=== PATIENT | female | born 1995 | race Caucasian/White ===

== ENCOUNTER 2023-06-16 07:16 | Inpatient (IN) | payer OTHER ==
[2023-06-16] MEDS ORDERED: Lidocaine 1% 50 ML MDV INJECT ONE (12:27)
[2023-06-16] MEDS ORDERED: Acetaminophen 325 MG Tab PO PRN (12:27)
[2023-06-16] MEDS ORDERED: Nalbuphine 10 MG/0.5 ML Syringe IVPUSH PRN (12:27)
[2023-06-16] MEDS ORDERED: Sodium Chloride 0.9% 10 ML Syringe FLUSH PRN (12:27)
[2023-06-16] MEDS ORDERED: Ondansetron 4 MG/2 ML SDV IVPUSH PRN (12:27)
[2023-06-16] MEDS ORDERED: Oxytocin/Lactated Ringers 10 UNIT/1,000 ML BAG IV SCH ×2 (12:30)
[2023-06-16 13:00] LABS: HEMOGLOBIN 10.1 gm/dl (12.0-16.0); MEAN CORPUSCULAR HEMOGLOBIN 21.1 pg (28.0-32.0); MEAN CORPUSCULAR HGB CONC 29.7 g/dl (32.0-36.0); MEAN CORPUSCULAR VOLUME 71.1 fl (83.0-99.0); MEAN PLATELET VOLUME 10.9 fl (9.4-12.3); PLATELET COUNT,PLT 148 K/mm3 (150-400); RED BLOOD CELL COUNT 4.78 M/mm3 (4.10-5.30); WHITE BLOOD CELL COUNT,WBC 7.18 K/mm3 (3.9-11.3)
[2023-06-16] MEDS ORDERED: Ampicillin 2 GM in Sodium Chloride 0.9% 100 ML IV ONE (13:00)
[2023-06-16] MEDS: Lactated Ringers 1,000 ML IV SCH ×3 (13:16→22:38)
[2023-06-16 13:19] LABS: A/G RATIO 0.5 (1-2); ALBUMIN 2.3 g/dl (3.4-5.0); ANION GAP 18.8 (5-15); CALCIUM 9.5 mg/dL (8.5-10.1); CREATININE 0.5 mg/dL (0.55-1.02); EST CRCL DRUG DOSING (CG) 141.04 mL/min; POTASSIUM,K 3.8 mEq/L (3.5-5.1); PROTEIN TOTAL,TP 6.6 g/dl (6.4-8.2)
[2023-06-16] MEDS: Ampicillin 1 GM in Sodium Chloride 0.9% 100 ML IV SCH ×2 (16:53→21:34)
[2023-06-16] MEDS ORDERED: Sodium Chloride 0.9% 10 ML Syringe FLUSH SCH (21:00)
[2023-06-16] MEDS ORDERED: fentaNYL 100 MCG/2 ML SDV EPIDUR PRN (21:04)
[2023-06-16] MEDS ORDERED: diphenhydrAMINE 50 MG/ML SDV IVPUSH PRN (21:04)
[2023-06-16] MEDS ORDERED: ePHEDrine 50 MG/ML SDV IVPUSH PRN (21:04)
[2023-06-16] MEDS: Bupivacaine/fentaNYL/NS 100 ML Bag EPIDUR PRN (21:17)
[2023-06-16 23:58] LABS: ALANINE AMINOTRANSFERASE,ALT 123 U/L (14-59); ASPARTATE AMNIOTRANSFERASE,AST 61 U/L (15-37)
[2023-06-17] MEDS: Ampicillin 1 GM in Sodium Chloride 0.9% 100 ML IV SCH ×2 (00:55→05:00)
[2023-06-17] MEDS: Bupivacaine/fentaNYL/NS 100 ML Bag EPIDUR PRN (01:58)
[2023-06-17] MEDS: Lactated Ringers 1,000 ML IV SCH (07:36)
[2023-06-17] MEDS ORDERED: Benzocaine/Menthol 20%-0.5% Spray 78 GM Cannister TOP PRN (08:35)
[2023-06-17] MEDS ORDERED: Acetaminophen 325 MG Tab PO PRN (08:35)
[2023-06-17] MEDS ORDERED: Witch Hazel Medicated Pads 40/Jar TOP PRN (08:35)
[2023-06-18] MEDS: Ibuprofen 600 MG Tab PO PRN ×3 (01:55→21:45)
[2023-06-18] MEDS: Docusate Sodium 100 MG Cap PO PRN (09:00)
[2023-06-18 10:46] LABS: HBSAG SCREEN Negative (Negative); HCV AB Non Reactive (Non Reactive); HEP A AB, IGM Negative (Negative); HEP B CORE AB, IGM Negative (Negative)
[2023-06-19] MEDS: Docusate Sodium 100 MG Cap PO PRN (08:01)
[2023-06-19] MEDS: Ibuprofen 600 MG Tab PO PRN ×2 (08:02→16:50)
[2023-06-19] MEDS ORDERED: Measles, Mumps & Rubella Vaccine 0.5 ML SDV SUBCUT ONE (09:00)
== END 2023-06-19 17:00 | disposition home or self-care (01) | DRG 805 ==
LOC: JD.OB 07:16 → OBSVTOIN 06-17 07:16 → JD.OB 06-17 07:17
PROVIDERS: ADMIT Obstetrics & Gynecology; ATTEND Obstetrics & Gynecology
PROC: 10D07Z6 Extraction of Products of Conception, Vacuum, Via Natural or Artificial Opening (ICD-10-PCS; principal; 2023-06-17)
PROC: 0KQM0ZZ Repair Perineum Muscle, Open Approach (ICD-10-PCS; 2023-06-17)
PROC: 10907ZC Drainage of Amniotic Fluid, Therapeutic from Products of Conception, Via Natural or Artificial Opening (ICD-10-PCS; 2023-06-17)
PROC: 3E033VJ Introduction of Other Hormone into Peripheral Vein, Percutaneous Approach (ICD-10-PCS; 2023-06-17)
PROC: 3E0R3BZ Introduction of Anesthetic Agent into Spinal Canal, Percutaneous Approach (ICD-10-PCS; 2023-06-17)
PROC: 00HU33Z Insertion of Infusion Device into Spinal Canal, Percutaneous Approach (ICD-10-PCS; 2023-06-17)
PROC: 3E0234Z Introduction of Serum, Toxoid and Vaccine into Muscle, Percutaneous Approach (ICD-10-PCS; 2023-06-17)
DX: O26.62 Liver and biliary tract disorders in childbirth (principal); K83.1 Obstruction of bile duct; Z37.0 Single live birth; R74.8 Abnormal levels of other serum enzymes; O24.420 Gestational diabetes mellitus in childbirth, diet controlled; O99.824 Streptococcus B carrier state complicating childbirth; O70.1 Second degree perineal laceration during delivery; O26.893 Other specified pregnancy related conditions, third trimester; L29.9 Pruritus, unspecified; Z3A.37 37 weeks gestation of pregnancy; Z28.39 Other underimmunization status; Z23 Encounter for immunization
CPT/HCPCS: 01967; 36415; 51701; 51702; 59025; 59409; 80053; 80074; 82947; 84450; 84460; 85027; 86592; 86803; 86850; 86900; 86901; 90471; 90707; A9270-GY; J0290; J2590; J3010; J3490; J7120

== ENCOUNTER 2025-04-27 02:03 | Inpatient (IN) | payer OTHER ==
[2025-04-27] MEDS ORDERED: Sodium Chloride 0.9% 10 ML Syringe FLUSH PRN (02:12)
[2025-04-27] MEDS ORDERED: Nalbuphine 10 MG/1 ML Vial IVPUSH PRN (02:12)
[2025-04-27] MEDS ORDERED: Ondansetron 4 MG/2 ML SDV IVPUSH PRN (02:12)
[2025-04-27] MEDS ORDERED: Lactated Ringers 1,000 ML IV SCH (02:15)
[2025-04-27] MEDS: Oxytocin 10 Units/1 ML SDV IM ONE (04:04)
[2025-04-27] MEDS ORDERED: Benzocaine/Menthol 20%-0.5% Spray 78 GM Cannister TOP PRN (04:40)
[2025-04-27] MEDS ORDERED: Witch Hazel Medicated Pads 40/Jar TOP PRN (04:40)
[2025-04-27 05:55] LABS: BASOPHILS ABSOLUTE AUTO 0.0 K/mm3 (0.0-0.2); BASOPHILS PERCENT AUTO 0.2 % (0.0-1.0); EOSINOPHILS ABSOLUTE AUTO 0.0 K/mm3 (0.0-0.4); EOSINOPHILS PERCENT AUTO 0.0 % (0.0-6.0); IMMATURE GRAN ABSOLUTE AUTO 0.13 K/mm3 (0.00-0.05); IMMATURE GRAN PERCENT AUTO 0.7 % (0.0-0.4); LYMPHOCYTES ABSOLUTE AUTO 1.8 K/mm3 (1.0-4.8); LYMPHOCYTES PERCENT AUTO 9.7 % (24.0-44.0); MEAN PLATELET VOLUME 11.4 fl (9.4-12.3); MONOCYTES ABSOLUTE AUTO 0.7 K/mm3 (0.0-0.8); MONOCYTES PERCENT AUTO 4.0 % (0.0-8.0); NEUTROPHILS ABSOLUTE AUTO 15.5 K/mm3 (1.8-7.7); NEUTROPHILS PERCENT AUTO 85.4 % (41.0-71.0); NRBC ABSOLUTE 0.00 (0.00-0.02); NRBC PERCENT 0.0 % (0.0-0.2); PLATELET COUNT,PLT 196 K/mm3 (150-400); RED BLOOD CELL COUNT 4.96 M/mm3 (4.10-5.30); WHITE BLOOD CELL COUNT,WBC 18.19 K/mm3 (3.9-11.3)
[2025-04-27] MEDS: Penicillin G Potassium 5 MILLUNITS in Sodium Chloride 0.9% 100 ML IV ONE (05:56)
[2025-04-27] MEDS ORDERED: Penicillin G Potassium 2.5 MILLUNITS in Sodium Chloride 0.9% 100 ML IV SCH (06:30)
[2025-04-27] MEDS ORDERED: Sodium Chloride 0.9% 10 ML Syringe FLUSH SCH (09:00)
== END 2025-04-28 22:45 | disposition home or self-care (01) | DRG 806 ==
LOC: JD.OBCHECK 02:03 → JD.OB 02:06 → JD.OBCHECK 02:14 → OBSVTOIN 02:24 → JD.OB 02:25
PROVIDERS: ADMIT Family Medicine; ATTEND Family Medicine
PROC: 10E0XZZ Delivery of Products of Conception, External Approach (ICD-10-PCS; principal; 2025-04-27)
DX: O48.0 Post-term pregnancy (principal); O72.1 Other immediate postpartum hemorrhage; Z37.0 Single live birth; O42.02 Full-term premature rupture of membranes, onset of labor within 24 hours of rupture; O99.824 Streptococcus B carrier state complicating childbirth; O70.0 First degree perineal laceration during delivery; Z3A.40 40 weeks gestation of pregnancy
CPT/HCPCS: 36415; 59409; 85025; 86592; 86850; 86900; 86901; A9270-GY; J2590